=== PATIENT | female | born 1960 | race Caucasian/White ===

== ENCOUNTER 2021-04-23 08:29 | Inpatient (IN) | payer MEDICAID, OTHER ==
[~2021-04-23] VITALS: Ht 170.2 cm; Wt 103.6 kg
[2021-04-23 09:19] LABS: BASOPHILS % (AUTO) 0.4 % (0-1); EOSINOPHILS % (AUTO) 0 % (0-6); HEMOGLOBIN 15.4 g/dl (12.0-16.0); LYMPHOCYTES # (AUTO) 1.1 X10'3 (1.1-4.8); LYMPHOCYTES % (AUTO) 16.9 % (21-51); MEAN CORPUSCULAR HEMOGLOBIN 28.8 PG (27.0-31.0); MEAN CORPUSCULAR HGB CONC 33.4 g/dL (33.0-36.5); MEAN CORPUSCULAR VOLUME 86.4 FL (78-98); MEAN PLATELET VOLUME 8.5 FL (7.4-10.4); MONOCYTES # (AUTO) 0.7 X10'3 (0-0.9); MONOCYTES % (AUTO) 10.3 % (2-12); NEUTROPHILS # (AUTO) 4.9 X10'3 (1.8-7.7); NEUTROPHILS % (AUTO) 72.4 % (42-75); PLATELET COUNT 237 X10'3 (140-440); RED BLOOD COUNT 5.33 X10'6 (4.20-5.60); RED CELL DISTRIBUTION WIDTH 12.8 % (11.5-14.5); WHITE BLOOD COUNT 6.8 X10'3 (4.5-11.0)
[2021-04-23 09:41] LABS: ALANINE AMINOTRANSFERASE 35 U/L (12-78); ALBUMIN 3.4 G/DL (3.4-5.0); ALBUMIN/GLOBULIN RATIO 0.7 (1.1-1.5); ALKALINE PHOSPHATASE 72 IU/L (46-116); ANION GAP 15 (8-16); ASPARTATE AMINO TRANSFERASE 32 U/L (10-37); BILIRUBIN,TOTAL 0.9 MG/DL (0.1-1.0); BLOOD UREA NITROGEN 29 MG/DL (7-18); BUN/CREATININE RATIO 33.3 (6.6-38.0); CALCIUM 9.1 MG/DL (8.5-10.1); CHLORIDE 94 MMOL/L (99-107); CREATININE 0.87 MG/DL (0.40-0.90); GLUCOSE 137 MG/DL (70-104); MAGNESIUM 2.7 MG/DL (1.5-2.4); POTASSIUM 3.5 MMOL/L (3.5-5.1); SODIUM 137 MMOL/L (135-145); TOTAL CARBON DIOXIDE 27.6 MMOL/L (24-32); eGFR 66 ML/MIN
[2021-04-23] MEDS ORDERED: dexamethasone sod phosphate 10mg/ml inj IV STA (10:00)
--- NOTE | 2021-04-23 10:12 | NUR ---
SISTER PATRICIA HUTCHINSON [phone] SON ROMÁN CROWDER [phone]
[2021-04-23] MEDS ORDERED: REMDESIVIR INJ 200 MG in normal saline 100ml IV soln 60 ML IV ONE (11:00)
[2021-04-23] MEDS ORDERED: magnesium hydroxide 30ml (MOM) UD suspension PO PRN (11:55)
[2021-04-23] MEDS ORDERED: HYDROcodone/acetaminophen 5mg/325mg tablet PO PRN (11:55)
[2021-04-23] MEDS ORDERED: HYDROcodone/acetaminophen 10/325mg tab PO PRN (11:55)
[2021-04-23] MEDS ORDERED: potassium Cl 20 mEq SR tablet PO PRN (11:55)
[2021-04-23] MEDS ORDERED: mag hydrox/Alum hydrox/simeth 30ml oral suspension PO PRN (11:55)
[2021-04-23] MEDS ORDERED: ondansetron/PF 4mg/2ml inj IV PRN (11:55)
[2021-04-23] MEDS ORDERED: acetaminophen 325mg tablet PO PRN ×2 (11:55)
[2021-04-23] MEDS ORDERED: bisacodyl 10mg suppository rectal RC PRN (11:55)
[2021-04-23] MEDS ORDERED: magnesium 2GM in 50ml NS 50 ML IV PRN (11:55)
[2021-04-23] MEDS: normal saline 1000ml 1,000 ML IV SCH (11:55)
[2021-04-23] MEDS ORDERED: potassium Cl 40MEQ/1/2NS 520ml 520 ML IV PRN ×2 (11:55)
[2021-04-23] MEDS ORDERED: acetaminophen 650mg rectal suppository RC PRN (11:55)
[2021-04-23] MEDS ORDERED: morphine 2 MG/ML inj. syringe IV PRN ×2 (11:55)
[2021-04-23] MEDS ORDERED: magnesium 4gm in 100ml NS 100 ML IV PRN (11:55)
[2021-04-23] MEDS ORDERED: magnesium Cl slow-release 64mg tablet PO PRN (11:55)
[2021-04-23] MEDS ORDERED: dexamethasone 4mg/ml inj IV SCH (11:55)
[2021-04-23] MEDS ORDERED: iohexol 350MG/ML 100ml bottle IV ONE (12:23)
[2021-04-23 12:53] LABS: HEMOGLOBIN A1C 6.5 % (4.5-6.2)
[2021-04-23] MEDS: dexamethasone 6 MG in NS 50ml IV soln IV SCH ×2 (13:00→20:00)
[2021-04-23] MEDS ORDERED: NO HOME MEDS (16:01)
[2021-04-23 18:00] VITALS: BP 127/72
--- NOTE | 2021-04-23 18:18 | NUR ---
Patient in room ORTH[facility] 4012. I have received report from Heena QUICK and had the opportunity to ask questions and assume patient care.
[2021-04-23] MEDS: docusate sod 100mg capsule PO SCH (20:00)
[2021-04-23] MEDS: heparin, porcine 5000 units/ml vial SQ SCH (20:00)
[2021-04-23] MEDS: K and/or MAG REPLACEMENT MC SCH (20:00)
[2021-04-23] MEDS: loperamide 2mg capsule PO PRN (20:27)
[2021-04-23 22:00] VITALS: BP 127/61
[2021-04-24 02:00] VITALS: BP 151/65
--- NOTE | 2021-04-24 02:00 | NUR ---
Patient having multiple episodes of diarrhea with mucus. Sample sent
[2021-04-24] MEDS: loperamide 2mg capsule PO PRN ×2 (02:31→09:54)
--- NOTE | 2021-04-24 06:46 | NUR ---
Problems reprioritized. Patient report given, questions answered & plan of care reviewed with Daina QUICK.
[2021-04-24] MEDS: REMDESIVIR INJ 100 MG in normal saline 100ml IV soln 80 ML IV SCH (07:57)
[2021-04-24] MEDS: dexamethasone 6 MG in NS 50ml IV soln IV SCH ×2 (07:57→19:35)
[2021-04-24] MEDS: heparin, porcine 5000 units/ml vial SQ SCH ×2 (07:59→19:34)
[2021-04-24] MEDS: docusate sod 100mg capsule PO SCH ×2 (08:00→19:36)
[2021-04-24] MEDS: K and/or MAG REPLACEMENT MC SCH ×3 (08:00→19:35)
[2021-04-24 08:46] LABS: BASOPHILS % (AUTO) 0.1 % (0-1); EOSINOPHILS % (AUTO) 0 % (0-6); HEMATOCRIT 46.2 % (35.0-45.0); HEMOGLOBIN 15.8 g/dl (12.0-16.0); LYMPHOCYTES # (AUTO) 0.5 X10'3 (1.1-4.8); LYMPHOCYTES % (AUTO) 9.7 % (21-51); MEAN CORPUSCULAR HEMOGLOBIN 29.1 PG (27.0-31.0); MEAN CORPUSCULAR HGB CONC 34.1 g/dL (33.0-36.5); MEAN CORPUSCULAR VOLUME 85.2 FL (78-98); MONOCYTES # (AUTO) 0.5 X10'3 (0-0.9); MONOCYTES % (AUTO) 9.7 % (2-12); NEUTROPHILS # (AUTO) 4.5 X10'3 (1.8-7.7); NEUTROPHILS % (AUTO) 80.5 % (42-75); PLATELET COUNT 259 X10'3 (140-440); RED BLOOD COUNT 5.43 X10'6 (4.20-5.60); RED CELL DISTRIBUTION WIDTH 13.1 % (11.5-14.5); WHITE BLOOD COUNT 5.6 X10'3 (4.5-11.0)
[2021-04-24 09:09] LABS: ALANINE AMINOTRANSFERASE 48 U/L (12-78); ALBUMIN 3.3 G/DL (3.4-5.0); ALBUMIN/GLOBULIN RATIO 0.7 (1.1-1.5); ALKALINE PHOSPHATASE 73 IU/L (46-116); ANION GAP 13 (8-16); ASPARTATE AMINO TRANSFERASE 38 U/L (10-37); BILIRUBIN,TOTAL 0.6 MG/DL (0.1-1.0); BLOOD UREA NITROGEN 35 MG/DL (7-18); BUN/CREATININE RATIO 38.9 (6.6-38.0); CALCIUM 9.4 MG/DL (8.5-10.1); CHLORIDE 96 MMOL/L (99-107); CHOLESTEROL 193 MG/DL (0-200); GLUCOSE 139 MG/DL (70-104); HDL CHOLESTEROL 32 MG/DL (35-60); LDL CHOLESTEROL 128 MG/DL (50-100); MAGNESIUM 2.9 MG/DL (1.5-2.4); PHOSPHORUS 4.5 MG/DL (2.3-4.5); POTASSIUM 3.4 MMOL/L (3.5-5.1); SODIUM 141 MMOL/L (135-145); TOTAL CARBON DIOXIDE 32.2 MMOL/L (24-32); TRIGLYCERIDES 116 MG/DL (20-135); eGFR 63 ML/MIN
[2021-04-24 10:26] LABS: C DIFF ANTIGEN NEGATIVE (NEGATIVE); C DIFF SPECIMEN=DIARRHEA? ACCEPTABLE; C DIFFICILE TOXINS A&B NEGATIVE (Neg)
[2021-04-24] MEDS: potassium Cl 20 mEq SR tablet PO PRN ×3 (12:07→22:07)
[2021-04-24 14:00] VITALS: BP 139/83
--- NOTE | 2021-04-24 17:59 | NUR ---
Patient in room ORTHO 4012. I have received report from Cynthia QUICK and had the opportunity to ask questions and assume patient care.
[2021-04-24 18:00] VITALS: BP 123/73
--- NOTE | 2021-04-24 18:31 | NUR ---
Patient in room ORTHO 4012. I have received report from Daina QUICK and had the opportunity to ask questions and assume patient care.
--- NOTE | 2021-04-24 18:40 | NUR ---
Problems reprioritized. Patient report given, questions answered & plan of care reviewed with Dee QUICK.
[2021-04-24 22:00] VITALS: BP 137/79
[2021-04-25] MEDS: diphenhydrAMINE 25mg capsule PO PRN ×2 (00:10→19:53)
[2021-04-25 00:52] LABS: URINE AMPHETAMINE SCREEN NEGATIVE (Neg); URINE BARBITUATE SCREEN NEGATIVE (Neg); URINE BENZODIAZEPINES SCREEN NEGATIVE (Neg); URINE CANNABINOID SCREEN NEGATIVE (Neg); URINE COCAINE SCREEN NEGATIVE (Neg); URINE METHADONE SCREEN NEGATIVE (Neg); URINE OPIATE SCREEN POSITIVE (Neg); URINE PHENCYCLIDINE SCREEN NEGATIVE (Neg)
[2021-04-25 01:02] LABS: CLARITY,URINE CLOUDY (Clear); COLOR,URINE YELLOW (Yellow); GLUCOSE, URINE NEGATIVE (Neg); KETONES,URINE TRACE mg/dl (Neg); LEUKOCYTE ESTERASE ,URINE MODERATE (Neg); NITRITES, URINE POSITIVE (Neg); OCCULT BLOOD,URINE SMALL (Neg); PROTEIN,URINE 100 mg/dl (Neg); UA COLLECTION TYPE NON-SPECIFIED; UROBILINOGEN,URINE 0.2 E.U/dL (0.2-1.0)
[2021-04-25 01:17] LABS: SQUAMOUS EPITHELIAL CELL,UR FEW /LPF (FEW); WBC CLUMPS,URINE MODERATE /HPF (NEGATIVE)
[2021-04-25 01:18] LABS: BACTERIA,URINE 4+ /HPF (Neg); WBC,URINE TNTC /HPF (0-4)
[2021-04-25 02:00] VITALS: BP 122/83
--- NOTE | 2021-04-25 06:25 | NUR ---
Problems reprioritized. Patient report given, questions answered & plan of care reviewed with Daina QUICK.
--- NOTE | 2021-04-25 07:09 | NUR ---
PAGER ID: [phone] MESSAGE: Daina [id number]. Patient Chayito Marie, 4012A: Patient urine is positive for nitrate, Leucocyte Esterase is moderate high. Patient A1C is 6.5, patient has not being diagnose for diabetes. should I initiate hypo/hyperglycemia protocol
[2021-04-25] MEDS: docusate sod 100mg capsule PO SCH ×2 (08:00→19:42)
[2021-04-25] MEDS: K and/or MAG REPLACEMENT MC SCH ×2 (08:00→19:40)
[2021-04-25 08:37] LABS: BASOPHILS % (AUTO) 0.1 % (0-1); EOSINOPHILS % (AUTO) 0 % (0-6); HEMATOCRIT 44.3 % (35.0-45.0); LYMPHOCYTES # (AUTO) 0.9 X10'3 (1.1-4.8); LYMPHOCYTES % (AUTO) 11.2 % (21-51); MEAN CORPUSCULAR HEMOGLOBIN 28.8 PG (27.0-31.0); MEAN CORPUSCULAR HGB CONC 33.9 g/dL (33.0-36.5); MEAN PLATELET VOLUME 9.1 FL (7.4-10.4); MONOCYTES # (AUTO) 0.8 X10'3 (0-0.9); MONOCYTES % (AUTO) 9.5 % (2-12); NEUTROPHILS # (AUTO) 6.5 X10'3 (1.8-7.7); NEUTROPHILS % (AUTO) 79.2 % (42-75); PLATELET COUNT 305 X10'3 (140-440); RED BLOOD COUNT 5.21 X10'6 (4.20-5.60); RED CELL DISTRIBUTION WIDTH 12.9 % (11.5-14.5); WHITE BLOOD COUNT 8.2 X10'3 (4.5-11.0)
[2021-04-25 08:54] LABS: ALANINE AMINOTRANSFERASE 53 U/L (12-78); ALBUMIN 3.1 G/DL (3.4-5.0); ALBUMIN/GLOBULIN RATIO 0.8 (1.1-1.5); ALKALINE PHOSPHATASE 65 IU/L (46-116); ANION GAP 11 (8-16); ASPARTATE AMINO TRANSFERASE 44 U/L (10-37); BILIRUBIN,TOTAL 0.7 MG/DL (0.1-1.0); BLOOD UREA NITROGEN 35 MG/DL (7-18); BUN/CREATININE RATIO 38.9 (6.6-38.0); C-REACTIVE PROTEIN 1.98 MG/DL (0.0-0.5); CALCIUM 9.1 MG/DL (8.5-10.1); CHLORIDE 102 MMOL/L (99-107); GLUCOSE 123 MG/DL (70-104); LACTATE DEHYDROGENASE 372 U/L (81-234); MAGNESIUM 2.8 MG/DL (1.5-2.4); PHOSPHORUS 3.8 MG/DL (2.3-4.5); POTASSIUM 4.1 MMOL/L (3.5-5.1); SODIUM 144 MMOL/L (135-145); TOTAL CARBON DIOXIDE 30.8 MMOL/L (24-32); TOTAL PROTEIN 7.2 G/DL (6.4-8.2); eGFR 63 ML/MIN
[2021-04-25 09:16] LABS: D-DIMER 0.39 MG/L FEU (0-0.50)
[2021-04-25] MEDS: dexamethasone 6 MG in NS 50ml IV soln IV SCH ×2 (09:27→19:38)
[2021-04-25] MEDS: REMDESIVIR INJ 100 MG in normal saline 100ml IV soln 80 ML IV SCH (09:27)
[2021-04-25] MEDS: heparin, porcine 5000 units/ml vial SQ SCH ×2 (09:28→19:40)
[2021-04-25 10:00] VITALS: BP 125/60
--- NOTE | 2021-04-25 12:29 | NUR ---
IV on left hand not patent, IV discontinue. New IV inserted to left hand. No redness, no swelling noted.
--- NOTE | 2021-04-25 12:29 | NUR ---
Patient in room ORTHO 4012. I have received report from Dee QUICK and had the opportunity to ask questions and assume patient care.
[2021-04-25] MEDS: normal saline 1000ml 1,000 ML IV SCH (13:52)
[2021-04-25 14:00] VITALS: BP 143/80
[2021-04-25 18:00] VITALS: BP 130/74
--- NOTE | 2021-04-25 18:29 | NUR ---
Problems reprioritized. Patient report given, questions answered & plan of care reviewed with Dee QUICK.
--- NOTE | 2021-04-25 18:41 | NUR ---
Patient in room ORTHO 4012. I have received report from Daina QUICK and had the opportunity to ask questions and assume patient care.
[2021-04-25] MEDS: ciprofloxacin lact 400MG/200ML 200 ML IV SCH (19:43)
[2021-04-25] MEDS: loperamide 2mg capsule PO PRN (19:53)
[2021-04-25 22:00] VITALS: BP 137/82
[2021-04-26 02:00] VITALS: BP 124/64
[2021-04-26 06:00] VITALS: BP 131/67
--- NOTE | 2021-04-26 06:37 | NUR ---
Problems reprioritized. Patient report given, questions answered & plan of care reviewed with Daina QUICK.
[2021-04-26] MEDS: dexamethasone 6 MG in NS 50ml IV soln IV SCH ×2 (07:31→22:50)
[2021-04-26] MEDS: REMDESIVIR INJ 100 MG in normal saline 100ml IV soln 80 ML IV SCH (07:31)
[2021-04-26] MEDS: ciprofloxacin lact 400MG/200ML 200 ML IV SCH ×2 (07:31→23:50)
[2021-04-26] MEDS: heparin, porcine 5000 units/ml vial SQ SCH ×2 (07:32→22:49)
[2021-04-26] MEDS: docusate sod 100mg capsule PO SCH ×2 (07:33→20:00)
[2021-04-26] MEDS: K and/or MAG REPLACEMENT MC SCH ×2 (07:33→20:00)
[2021-04-26 08:13] LABS: BASOPHILS % (AUTO) 0.5 % (0-1); EOSINOPHILS % (AUTO) 0 % (0-6); HEMATOCRIT 44.1 % (35.0-45.0); HEMOGLOBIN 14.5 g/dl (12.0-16.0); LYMPHOCYTES # (AUTO) 1.1 X10'3 (1.1-4.8); LYMPHOCYTES % (AUTO) 15.8 % (21-51); MEAN CORPUSCULAR HEMOGLOBIN 28.6 PG (27.0-31.0); MEAN CORPUSCULAR HGB CONC 32.9 g/dL (33.0-36.5); MEAN CORPUSCULAR VOLUME 86.8 FL (78-98); MEAN PLATELET VOLUME 8.8 FL (7.4-10.4); MONOCYTES # (AUTO) 0.7 X10'3 (0-0.9); MONOCYTES % (AUTO) 10.2 % (2-12); NEUTROPHILS % (AUTO) 73.5 % (42-75); PLATELET COUNT 309 X10'3 (140-440); RED BLOOD COUNT 5.08 X10'6 (4.20-5.60); RED CELL DISTRIBUTION WIDTH 12.9 % (11.5-14.5); WHITE BLOOD COUNT 6.8 X10'3 (4.5-11.0)
[2021-04-26 08:42] LABS: ALANINE AMINOTRANSFERASE 71 U/L (12-78); ALBUMIN 3.1 G/DL (3.4-5.0); ALBUMIN/GLOBULIN RATIO 0.8 (1.1-1.5); ALKALINE PHOSPHATASE 64 IU/L (46-116); ANION GAP 10 (8-16); ASPARTATE AMINO TRANSFERASE 57 U/L (10-37); BILIRUBIN,TOTAL 0.7 MG/DL (0.1-1.0); BLOOD UREA NITROGEN 33 MG/DL (7-18); BUN/CREATININE RATIO 39.8 (6.6-38.0); C-REACTIVE PROTEIN 0.98 MG/DL (0.0-0.5); CHLORIDE 103 MMOL/L (99-107); CREATININE 0.83 MG/DL (0.40-0.90); GLUCOSE 119 MG/DL (70-104); LACTATE DEHYDROGENASE 249 U/L (81-234); MAGNESIUM 2.7 MG/DL (1.5-2.4); PHOSPHORUS 4.2 MG/DL (2.3-4.5); POTASSIUM 3.9 MMOL/L (3.5-5.1); SODIUM 143 MMOL/L (135-145); TOTAL CARBON DIOXIDE 29.8 MMOL/L (24-32); TOTAL PROTEIN 6.8 G/DL (6.4-8.2); eGFR 69 ML/MIN
[2021-04-26 08:53] LABS: D-DIMER 0.38 MG/L FEU (0-0.50)
[2021-04-26] MEDS ORDERED: benzonatate 100mg capsule PO PRN (12:45)
--- NOTE | 2021-04-26 19:31 | NUR ---
Problems reprioritized. Patient report given, questions answered & plan of care reviewed with Pau QUICK.
[2021-04-26 22:00] VITALS: BP 150/87
[2021-04-26] MEDS: guaiFENesin ER 600mg tablet PO SCH (22:49)
[2021-04-26] MEDS: loperamide 2mg capsule PO PRN (22:49)
[2021-04-27 02:00] VITALS: BP 122/68
[2021-04-27 06:00] VITALS: BP 126/74
--- NOTE | 2021-04-27 06:10 | NUR ---
RECEIVED REPORT FROM YNES DELACRUZ
--- NOTE | 2021-04-27 06:29 | NUR ---
Problems reprioritized. Patient report given, questions answered & plan of care reviewed with YNES Alba.
[2021-04-27] MEDS: REMDESIVIR INJ 100 MG in normal saline 100ml IV soln 80 ML IV SCH (07:43)
[2021-04-27] MEDS: guaiFENesin ER 600mg tablet PO SCH (07:44)
[2021-04-27] MEDS: heparin, porcine 5000 units/ml vial SQ SCH (07:44)
[2021-04-27] MEDS: docusate sod 100mg capsule PO SCH (07:54)
[2021-04-27] MEDS: K and/or MAG REPLACEMENT MC SCH (08:00)
[2021-04-27 08:22] LABS: BASOPHILS % (AUTO) 0.1 % (0-1); EOSINOPHILS % (AUTO) 0 % (0-6); HEMATOCRIT 44.4 % (35.0-45.0); HEMOGLOBIN 14.7 g/dl (12.0-16.0); LYMPHOCYTES # (AUTO) 0.9 X10'3 (1.1-4.8); LYMPHOCYTES % (AUTO) 12.5 % (21-51); MEAN CORPUSCULAR HEMOGLOBIN 28.8 PG (27.0-31.0); MEAN CORPUSCULAR HGB CONC 33.2 g/dL (33.0-36.5); MEAN CORPUSCULAR VOLUME 86.6 FL (78-98); MONOCYTES # (AUTO) 0.6 X10'3 (0-0.9); MONOCYTES % (AUTO) 8.6 % (2-12); NEUTROPHILS # (AUTO) 5.7 X10'3 (1.8-7.7); NEUTROPHILS % (AUTO) 78.8 % (42-75); PLATELET COUNT 335 X10'3 (140-440); RED BLOOD COUNT 5.13 X10'6 (4.20-5.60); RED CELL DISTRIBUTION WIDTH 12.8 % (11.5-14.5); WHITE BLOOD COUNT 7.2 X10'3 (4.5-11.0)
[2021-04-27 08:43] LABS: D-DIMER 0.46 MG/L FEU (0-0.50)
[2021-04-27 09:00] LABS: ALANINE AMINOTRANSFERASE 93 U/L (12-78); ALBUMIN/GLOBULIN RATIO 0.8 (1.1-1.5); ALKALINE PHOSPHATASE 65 IU/L (46-116); ANION GAP 11 (8-16); ASPARTATE AMINO TRANSFERASE 59 U/L (10-37); BILIRUBIN,TOTAL 0.9 MG/DL (0.1-1.0); BLOOD UREA NITROGEN 26 MG/DL (7-18); BUN/CREATININE RATIO 33.3 (6.6-38.0); C-REACTIVE PROTEIN 0.55 MG/DL (0.0-0.5); CALCIUM 8.7 MG/DL (8.5-10.1); CHLORIDE 100 MMOL/L (99-107); CREATININE 0.78 MG/DL (0.40-0.90); GLUCOSE 132 MG/DL (70-104); LACTATE DEHYDROGENASE 426 U/L (81-234); MAGNESIUM 2.4 MG/DL (1.5-2.4); SODIUM 139 MMOL/L (135-145); TOTAL CARBON DIOXIDE 27.9 MMOL/L (24-32); TOTAL PROTEIN 6.6 G/DL (6.4-8.2); eGFR 75 ML/MIN
[2021-04-27] MEDS: dexamethasone 6 MG in NS 50ml IV soln IV SCH (09:02)
[2021-04-27 09:06] LABS: PHOSPHORUS 4.7 MG/DL (2.3-4.5)
[2021-04-27] MEDS: ciprofloxacin lact 400MG/200ML 200 ML IV SCH (09:15)
[2021-04-27 10:00] VITALS: BP 107/61
[2021-04-27] MEDS: normal saline 1000ml 1,000 ML IV SCH (11:55)
[2021-04-27] MEDS ORDERED: METH4TAB81 PO (12:23)
[2021-04-27] MEDS ORDERED: CIPR-202 PO (12:23)
[2021-04-27 14:00] VITALS: BP 145/94
--- NOTE | 2021-04-27 16:23 | NUR ---
Explained all pt discharge instructions. Pt verbalized understanding. piv d/c'd, tip intact. pt wheeled down to front of hospital to awaiting car.
[2021-04-27] MEDS ORDERED: lactobacillus rhamnosus 10,000 MMU CELLS/CAPSULE PO SCH (20:00)
== END 2021-04-27 15:00 | disposition home or self-care (01) | DRG 137 ==
LOC: ER 08:29 → ED HOLD 12:14 → ORTHO 4S 14:25
PROVIDERS: ADMIT Family Medicine; ATTEND Family Medicine
PROC: XW033E5 Introduction of Remdesivir Anti-infective into Peripheral Vein, Percutaneous Approach, New Technology Group 5 (ICD-10-PCS; principal; 2021-04-23)
PROC: B32T1ZZ Computerized Tomography (CT Scan) of Left Pulmonary Artery using Low Osmolar Contrast (ICD-10-PCS; 2021-04-23)
PROC: B3201ZZ Computerized Tomography (CT Scan) of Thoracic Aorta using Low Osmolar Contrast (ICD-10-PCS; 2021-04-23)
PROC: B32S1ZZ Computerized Tomography (CT Scan) of Right Pulmonary Artery using Low Osmolar Contrast (ICD-10-PCS; 2021-04-23)
DX: U07.1 COVID-19 (principal); J96.01 Acute respiratory failure with hypoxia; J12.82 Pneumonia due to coronavirus disease 2019; R19.7 Diarrhea, unspecified; E66.01 Morbid (severe) obesity due to excess calories; B96.1 Klebsiella pneumoniae [K. pneumoniae] as the cause of diseases classified elsewhere; G89.29 Other chronic pain; N39.0 Urinary tract infection, site not specified; M54.9 Dorsalgia, unspecified; Z68.35 Body mass index [BMI] 35.0-35.9, adult
CPT/HCPCS: 36415; 71045; 71275; 80053; 80061; 80305; 81001; 83036; 83605; 83615; 83735; 84100; 84145; 84443; 85025; 85379; 86140; 87040; 87077; 87081; 87088; 87186; 87324; 87449; 87635; 93005; 94667; 94668; 94760; 97116; 97530; 99285; C9803; G0378; J0744; J1100; J1644; J7030; Q0163; Q9967